=== PATIENT | female | born 1965 | race Caucasian/White ===

== ENCOUNTER → 2025-07-16 08:00 | Outpatient (BNV) | payer OTHER, SELFPAY | PROVIDERS: PCP Physician Assistant; Visit Provider Psychiatry & Neurology Neurology | DX: M54.16 Radiculopathy, lumbar region (principal); G62.89 Other specified polyneuropathies | CPT/HCPCS: 95886; 95910 ==

== ENCOUNTER 2025-07-16 08:13 | Outpatient (REF) | payer OTHER, SELFPAY ==
--- NOTE | 2025-07-16 08:00 | EMG_ITS ---
Chief complaint: Numbness and tingling Reason for referral: Numbness and tingling left leg Referred by:?Marbella Adair PA-C Procedure done: Left lower extremity NCS/EMG Left tibial and peroneal motor studies were performed left superficial peroneal and sural sensory studies were performed tibial H-reflex was obtained in EMG needle examination was performed. Superficial and sural amplitude was were significantly diminished with slow conduction velocities. Tibial and peroneal distal latencies were prolonged with significant reduction of amplitude send mild slowing of conduction velocity. Median and lateral mixed plantars studies revealed significant reduction of amplitude and slow conduction velocity. Impression: 1. Moderate axonal sensory motor peripheral neuropathy 2. Left lower lumbar radiculopathy MTDD
--- OUTSIDE RECORDS SUMMARY | 2025-07-16 09:34 | XMS_ITS | Clinical Summary ---
Author Organization [facility] Address [address] [place] [address] Phone Care Team Providers Care Rn Family Name Role Phone Marbella Adair Primary Care Provider [phone] Allergies Active Allergy Reactions Criticality Noted Date Comments Adhesive Tape-Silicones Rash High 12/05/2020 Epinephrine Palpitations High 04/18/2024 Morphine Hives,Itching High 01/20/2006 Medications estradioL (ESTRACE) 0.01 % (0.1 mg/gram) vaginal cream Insert 2 g into the vagina. 5 Active metFORMIN (GLUCOPHAGE) 500 mg tablet Take 1 tablet (500 mg total) by mouth. 3 Active atorvastatin (LIPITOR) 10 mg tablet Take 1 tablet (10 mg total) by mouth daily. 5 Active Mounjaro 5 mg/0.5 mL injection ADMINISTER 5 MG UNDER THE SKIN 1 TIME A WEEK Active multivitamin tablet Take 1 tablet by mouth daily. 5 Active naproxen (NAPROSYN) 500 mg tablet Take 1 tablet (500 mg total) by mouth. 5 Active freestyle 28 gauge lancets USE THREE TIMES DAILY WITH MEALS. 5 Active blood-glucose meter kit Test blood sugars TID w/meals and for symptoms of hypoglycemia 3 Active blood sugar diagnostic (FreeStyle Lite Strips) test strip 3 (three) times daily before meals Use daily.. 5 Active imiquimod (ALDARA) 5 % cream Apply topically 3 times a week for 2 months orf the right vulva. Wash hands prior to and following application. 24 each 1 5 Active clotrimazole-be tamethasone (LOTRISONE) 1-0.05 % cream Apply 2 times daily for 5-7 days as needed for itching 15 g 1 5 Active Active Problems Problem Noted Date Diagnosed Date Diverticulosis 06/19/2025 Severe obesity ([facility] V24, [facility] V28) 2024 Tricompartment osteoarthritis of right knee 12/29 H/O abdominal hysterectomy 01/03/2024 Type 2 diabetes mellitus wit h hyperglycemia, without long-term current use of insulin ([facility] V24, [facility] V28) 12/30/2022 Hepatosplenomegaly 11/05/2022 Overview (06/19/2025): 10/26/22 Abd US: IMPRESSION: Hepatosplenomegaly. Coarsened hepatic echo texture consistent with fatty infiltration and/or hepatocellular disease. A calcified cyst is present at the interpolar region of the right kidney measuring 1.1 x 1.0 x 1.3 cm; follow up renal US examination in approximately 6 months is recommended. Chronic diarrhea 12/05/2020 Hemorrhoids 12/05/2020 Mild intermittent asthma without complication Varicose veins of lower extremity 01/21/2010 Overview (06/19/2025): 2020 Microphlebectomy at [facility] Asthma 09/15/2006 Encounters Date Type Department Care Team Description 06/19/2025 3:45 PM EDT Office Visit Obstetrics [facility]ne[facility] [place] [address] [place] [address] Harmony Kwong CNM Acute vaginitis (Primary Dx); Genital warts from Last 3 Months Surgical History Surgery Date Site/Laterality Comments OTHER SURGICAL HISTORY 1994 PROCEDURE: [place] ANAL FSTL TRANS/SUPRA/XTRASPHNCTRC INCL [place] CHOLECYSTECTOMY 2001 PROCEDURE: HISTORICAL CHOLECYSTECTOMY; COMMENT: Scotty SECTION 1996 PROCEDURE: [place] DELIVERY ONLY HYSTERECTOMY Medical History Medical History Date Comments Unspecified asthma(493.90) DX:Un specified asthma(493.90) Obesity 06/06/2009 DX:Obesity Varicose vein 01/21/2010 DX:Varicose vein S/P colonoscopy 01/03/2018 DX:S/P colonosco py; COMMENT: Diverticulosis, internal hemorrhoids. Next due 2027 Internal hemorrhoids DX:Internal hemorrhoids; COMMENT: Grade 1 Diverticulosis DX:Diverticulosi s Abdominal discomfort DX:Abdomina l discomfort Diabetes mellitus type 2, co ntrolled, with complications (CMS/HCC V24, CMS/HCC V28) DX:Diabetes mellitus type 2, controlled, with complications ([facility]) Esophageal reflux DX:Esophageal reflux Family History Medical History Relation Name Comments Blindness Aunt maternal macular degener ation Diabetes Father lipids, HTN, [place] (age 59) Cataracts Maternal Grandmother No Known Problems Mother Ovarian cancer Mother's side MGGM Breast cancer Sister 50 Glaucoma Neg Hx strabismus, [place] breast Relation Name Status Comments Aunt maternal Father (Age 1990) [place] @ 59 Maternal Grandmother Mother Alive Mother's side MGGM Sister 50 Alive Social History Tobacco Use Types Packs/Day Years Used Date Smoking Tobacco: Never Smokeless Tobacco: Never Tobacco Cessation:Counseling Given: Not Answered Alcohol Use Standard Drinks/Week Comments No 0 (1 standard drink = 0.6 oz pur e alcohol) Comments No Sex and Gender Information Value Date Recorded Sex Assigned at Female 01/09/2025 4:39 PM EDT Legal Sex Female 9:58 AM EST Gender Identity Female 01/09/2025 4:39 PM EDT Sexual Orientation Choose not to disclose 2024 4:39 PM EDT Obstetrics History Para Term AB IAB SAB Ectopic Multiple Livin g Live Births 2 Last Filed Vital Signs Vital Sign Reading Time Taken Comments Blood Pressure 128/88 06/19/2025 4:16 PM EDT Pulse 76 06/19/2025 3:43 PM EDT Temperature - - Respiratory Rate 14 06/19/2025 3:43 PM EDT Oxygen Saturation - - Inhaled Oxygen Concentration - - Weight 122 kg (269 lb 3.2 oz) 06/19/2025 3:43 PM EDT Height 165.1 cm (5' 5 ) 01/26/2025 9:18 AM EDT Body Mass Index 44.8 01/26/2025 9:18 AM EDT Plan of Treatment Upcoming Encounters Date Type Department Care Team (Late st Contact Info) Description 07/24/2025 2:45 PM EDT Consult Orthopedic Surgery - [place] [address] [facility] [address] [place] [id number] Johnny Cary, DPM [address] [facility] [address] [place] [address] Health Maintenance Due Date Last Done Comments Diabetes: Annual Foot Exam 1975 Diabetes: Annual Retina Eye Exam 1975 Hepatitis A Vaccines (1 of 2 - Risk 2-dose series) 1984 Colorectal Cancer Screening: Colonoscopy 09/30/2022 Hepatitis C Screening 09/30/2022 Social Influencers of Health Screening 09/30/2022 Depression Screening 10/31/2024 RSV Immunization Adult Patients (1 - Risk 60-74 years 1-dose series) 2025 COVID-19 Vaccine ( season) 2025 11/17/2023, 10/15/2021, 01/09/2021, Additional history exists Influenza Vaccine (#1) 2025 , 08/01/2023, 08/03/2022, Additional history exists Diabetes: Blood Sugar Control Test (HGBA1C) 10/13/2025 04/13/2025, 12/08/2024 Cervical Cancer Screening: Pap Smear 03/29/2026 03/29/2023, 07/30/2021, 01/11/2018 Diabetes: Annual Urine Albumin-Creatinine Ratio (uACR) 05/30/2026 05/30/2025, 04/21/2024 Diabetes: Annual GFR (Glomerular Filtration Rate) 05/30/2026 05/30/2025, 04/21/2024 Breast Cancer Screening 01/26/2027 01/27/20 25, 11/14/2023, 10/14/2022, Additional history exists DTaP,Tdap,and Td Vaccines (3 - Td or Tdap) 11/12/2029 11/12/2019, 06/06/2009 Cholesterol Screening (Lipid Panel) 04/13/2030 04/13/2025, 04/13/2025, 01/07/2024, Additional history exists HIV Screening Completed 12/05/2020 Zoster Vaccines Completed 12/29/2022, 10/13/2022 Pneumococcal Vaccine: 50+ Years Completed 05/04/2024 Hepatitis B Vaccines Completed 06/04/2024, 05/04/20 24 HIB Vaccines Aged Out No longer eligi ble based on patient's age to complete this topic HPV Vaccines Aged Out No longer eligi ble based on patient's age to complete this topic IPV Vaccines Aged Out No longer eligi ble based on patient's age to complete this topic MMR Vaccines Aged Out No longer eligi ble based on patient's age to complete this topic Meningococcal ACWY Vaccine Aged Out N o longer eligible based on patient's age to complete this topic Meningococcal B Vaccine Aged Out No l onger eligible based on patient's age to complete this topic RSV Immunization Patients Under 20 months Aged Out No longer eligible based on patient's age to complete this topic Varicella Vaccines Aged Out No longer eligible based on patient's age to complete this topic Procedures Procedure Name Priority Date/Time Associated Diagnosis Comments TRICHOMONAS VAGINALIS ANTIGEN Routine 06/19/2025 4:10 PM EDT Acute vaginitis WET PREP, GENITAL Routine 06/19/2025 4:1 0 PM EDT Acute vaginitis MG MAMMO DIGITAL SCREENING W ALCON BILAT Routine 01/26/2025 9:30 AM EDT Encounter for screening mammogram for malignant neoplasm of breast PAP SMEAR Routine 03/29/2023 from Last 3 Months or Most Recently Relevant to Health Maintenance Results * Trichomonas vaginalis antigen (06/19/2025 4:10 PM EDT) Trichomonas vaginalis Negative Negative 06/19/2025 6:54 PM EDT [facility] Swab Vaginal structure / Unknown Non-blood Collection / Unknown 06/19/2025 4:10 PM EDT 06/19/2025 4:10 PM EDT [facility] MICROBIOLOGY - GENERAL OR DERABLES Final Result Performing Organization Address [facility]/ZIP Co de Phone Number [facility] [address] [place] [address], [place] [phone] * Wet prep, genital (06/19/2025 4:10 PM EDT) Clue Cells, Wet Prep Negative Negative 06/19/2025 6:43 PM EDT [facility] Yeast, Wet Prep Negative Negative 06/19/2025 6:43 PM EDT [facility] Trichomonas, Wet Prep Indeterminate Negative 06/19/2025 6:43 PM EDT [facility] Comment:Refer to Trichomonas antigen. Swab Vaginal structure / Unknown Non-blood Collection / Unknown 06/19/2025 4:10 PM EDT 06/19/2025 4:10 PM EDT [facility] MICROBIOLOGY - GENERAL OR DERABLES Final Result Performing Organization Address [facility] Co de Phone Number [facility] [address] [place] [address], [place] [phone] * MG Mammo Digital Screening w Alcon bilat (01/26/2025 9:30 AM EDT) Anatomical Region Laterality Modality Breast Bilateral Mammography 01/28/2025 7:18 AM EDT Impressions 01/28/2025 7:28 AM EDT No mammographic evidence of malignancy. No suspicious interval change. A negative mammogram in the presence of a clinically suspicious palpable abnormality does not preclude the possibility of malignancy or alter the indications for biopsy. ASSESSMENT: BI-RADS 1: NEGATIVE RECOMMENDATION(S): 1: Routine screening mammogram BILATERAL in 1 year. [facility] [address] [place], [address] -------- FINAL REPORT -------- Dictated By: Lane Jones Dictated Date: 01/28/2025 07:18 ET Assigned Physician: Lane Jones Reviewed and Electronically Signed By: Lane Jones Signed Date: 01/28/2025 07:28 ET Workstation ID: [id number] Transcribed By: Self Edit Transcribed Date: 01/28/2025 07:18 ET Narrative 01/28/2025 7:28 AM EDT EXAM: SCREENING MAMMOGRAPHY, BILATERAL HISTORY: SCREENING. Family history of breast cancer, sister. COMPARISON: 11/12/23, 10/13/22, 08/22/21, 07/28/20 TECHNIQUE: Synthesized CC and MLO projections of each breast. Tomosynthesis of each breast in the CC and MLO projections. ADDITIONAL IMAGING: None Computer-aided detection was employed with the Noxilizer AI 3-D. TISSUE DENSITY: There are scattered areas of fibroglandular density. (BI-RADS category B) FINDINGS: RIGHT BREAST: No suspicious mass. No suspicious calcification. No distortion. No additional suspicious right breast findings LEFT BREAST: No suspicious mass. No suspicious calcification. No distortion. No additional suspicious left breast findings Procedure Note Lane Jones, MD - 01/28/2025 EXAM: SCREENING MAMMOGRAPHY, BILATERAL HISTORY: SCREENING. Family history of breast cancer, sister. COMPARISON: 11/12/23, 10/13/22, 08/22/21, 07/28/20 TECHNIQUE: Synthesized CC and MLO projections of each breast.Tomosynthesis of each breast in the CC and MLO projections. ADDITIONAL IMAGING: None Computer-aided detection was employed with the Noxilizer AI 3-D. TISSUE DENSITY: There are scattered areas of fibroglandular density.(BI-RADS category B) FINDINGS: RIGHT BREAST: No suspicious mass. No suspicious calcification. No distortion. Noadditional suspicious right breast findings LEFT BREAST: No suspicious mass. No suspicious calcification. No distortion. Noadditional suspicious left breast findings IMPRESSION: No mammographic evidence of malignancy. No suspicious interval change. A negative mammogram in the presence of a clinically suspicious palpableabnormality does not preclude the possibility of malignancy or alter theindications for biopsy. ASSESSMENT: BI-RADS 1: NEGATIVE RECOMMENDATION(S): 1: Routine screening mammogram BILATERAL in 1 year. [facility] [address], [address] -------- FINAL REPORT -------- Dictated By: Lane Jones Dictated Date: 01/28/2025 07:18 ET Assigned Physician: Lane Jones Reviewed and Electronically Signed By: Lane Jones Signed Date: 01/28/2025 07:28 ET Workstation ID: [id number] Transcribed By: Self Edit Transcribed Date: 01/28/2025 07:18 ET Marbella GALAN IMBeatriz BI PROCEDURES Final Result * Pap smear (03/29/2023) 03/29/2023 Narrative HISTORICAL TESTING LAB RESULTING AGENCY - 04/06/2023 1:56 PM EDT [id number] THINPREP PAP, IMAGED: NEGATIVE FOR SQUAMOUS INTRAEPITHELIAL LESION AND MALIGNANCY . FRANKIE LEMA(ASCP) (CASE ELECTRONICALLY SIGNED 04 06 2023) RESULT OF APTIMA HIGH RISK HPV ASSAY: HIGH RISK HPV: NEGATIVE (SEROTYPES 16,18,31,33,35,39,45,51,52,56,58,59,66,68) COMPLETED ON 2023-03-31 ADEQUACY: SATISFACTORY ENDOCERVICAL/TRANSFORMATION ZONE COMPONENT PRESENT. SOURCE: THINPREP PAP HPV ANY DX: REFLEX 16 AND 18, CERVICAL, IMAGED CLINICAL INFORMATION: HPV ANY DIAGNOSIS. MENOPAUSE, Z12.4 us Fabiola Castro DO LAB CYTOLOGY ORDERABLES Final Result HISTORICAL TESTING LAB RESULTING AGENCY from Last 3 Months or Most Recently Relevant to Health Maintenance [place] [address] [address] Care Teams Rn Family Relationship Specialty Start Date End Date Marbella Adair PA [address] [place] [address] PCP - General 11/09/22
--- OUTSIDE RECORDS SUMMARY | 2025-07-16 09:34 | XMS_ITS | Clinical Summary ---
Author Organization [facility] Address [address] [address] Care Team Providers Care Refrigeration System Installer Name Role Phone Marbella Adair PA-C Primary Care Provider [phone] Source Comments PLEASE NOTE, if this patient is a minor, it may be UNLAWFUL to discuss sensitive information that is contained in these records (such as FAMILY PLANNING, MENTAL HEALTH or SUBSTANCE ABUSE) with the minor patient's parent or other person without the patient's specific authorization.[facility] Allergies Active Allergy Reactions Criticality Noted Date Comments Adhesive Tapes Rash High 12/05/2020 Epinephrine Palpitations High 04/18/2024 Morphine Hives High 12/05/2020 Medications blood-glucose meter (FREESTYLE LITE METER) monitoring kitIndications:T ype 2 diabetes mellitus with hyperglycemia, without long-term current use of insulin (CMS & HHS-HCC) Test blood sugars TID w/meals and for symptoms of hypoglycemia 1 Each 11/30/19 23 Active oxyCODONE (ROXICODONE) 5 mg tabletIndication s:Acute pain of right knee Take 1 Tablet by mouth every 6 (six) hours as needed for pain 4 Tablet 02/19/20 25 Active tirzepatide (MOUNJARO) 2.5 mg/0.5 mL pnijIndications: Type 2 diabetes mellitus with hyperglycemia, without long-term current use of insulin ([facility]) Inject 2.5 mg into the skin once a week. 2 mL 04/12/20 25 Active blood sugar diagnostic (FREESTYLE LITE STRIPS) stripsIndication s:Type 2 diabetes mellitus with hyperglycemia, without long-term current use of insulin ([facility]) 3 (three) times daily before meals Use daily.. 100 Each 04/15/20 25 Active lancets (FREESTYLE LANCETS) 28 gaugeIndications :Type 2 diabetes mellitus with hyperglycemia, without long-term current use of insulin ([facility]) USE THREE TIMES DAILY WITH MEALS. 100 Each 04/15/20 25 Active MISCELLANEOUS MEDICAL SUPPLY MISCIndications: Type 2 diabetes mellitus with hyperglycemia, without long-term current use of insulin ([facility]) by miscellaneous route daily DX: diabetes, RHIANNON: 99, Supply: diabetic shoes and insoles.. 1 Each 05/01/20 25 Active estradioL (ESTRACE) 0.01 % (0.1 mg/gram) vaginal creamIndications :Vaginal atrophy Place 2 g vaginally nightly at bedtime. 42.5 g 3 05/02/20 25 Active atorvastatin (LIPITOR) 10 mg tabletIndication s:Type 2 diabetes mellitus with hyperglycemia, without long-term current use of insulin ([facility]) TAKE 1 TABLET BY MOUTH DAILY 90 Tablet 1 05/10/20 25 Active multivitamin tabletIndication s:Encounter for annual physical exam Take 1 Tablet by mouth once daily. 90 Tablet 1 05/30/20 25 Active albuterol HFA 90 mcg/actuation inhalerIndicatio ns:Mild intermittent asthma without complication ([facility]) Inhale 2 Puffs into the lungs every 4 to 6 (four to six) hours as needed for shortness of breath or wheezing. 1 Each 3 05/30/20 25 Active metFORMIN (GLUCOPHAGE) 500 mg tabletIndication s:Type 2 diabetes mellitus without complication, without long-term current use of insulin ([facility]) Take 1 Tablet by mouth 2 (two) times daily with a meal. 180 Tablet 1 05/30/20 25 Active naproxen (NAPROSYN) 500 mg tabletIndication s:Acute pain of right knee Take 1 Tablet by mouth 2 (two) times daily with a meal. 60 Tablet 05/30/20 25 Active tirzepatide (MOUNJARO) 5 mg/0.5 mL pnijIndications: Type 2 diabetes mellitus with hyperglycemia, without long-term current use of insulin ([facility]) Inject 5 mg into the skin once a week. 2 mL 2 06/26/20 25 Active diclofenac sodium (VOLTAREN) 1 % gelIndications:A cute pain of right knee Apply 2-4 g topically 2 (two) times daily 100 g 01/09/20 25 025 Discontin ued(Thera py completed /Not needed) tirzepatide (MOUNJARO) 5 mg/0.5 mL pnijIndications: Type 2 diabetes mellitus with hyperglycemia, without long-term current use of insulin ([facility]) Inject 5 mg into the skin once a week. 2 mL 2 04/12/20 25 025 Discontin ued(Reord er (E-Cancel Not Sent)) Active Problems Problem Noted Date Diagnosed Date Tricompartment osteoarthritis of right knee 12/29 Class 3 severe obesity due t o excess calories without serious comorbidity with body mass index (BMI) of 45.0 to 49.9 in adult ([facility]) 06/04/2024 History of endometrial cancer 01/03/2024 H/O abdominal hysterectomy 01/03/2024 Type 2 diabetes mellitus wit h hyperglycemia, without long-term current use of insulin ([facility]) 12/30/2022 Hepatosplenomegaly 11/05/2022 Overview (11/05/2022): 10/26/22 Abd US: IMPRESSION: Hepatosplenomegaly. Coarsened hepatic echo texture consistent with fatty infiltration and/or hepatocellular disease. A calcified cyst is present at the interpolar region of the right kidney measuring 1.1 x 1.0 x 1.3 cm; follow up renal US examination in approximately 6 months is recommended. Varicose veins of lower extremity 12/05/2020 Overview (10/13/2022): 2020 Microphlebectomy at [facility] Chronic diarrhea 12/05/2020 Mild intermittent asthma without complication (H HS-HCC) 12/05/2020 Class 2 obesity due to exces s calories without serious comorbidity with body mass index (BMI) of 39.0 to 39.9 in adult 12/05/2020 Hemorrhoids 12/05/2020 Encounters Date Type Department Care Team Description 05/30/2025 2:20 PM EDT Office Visit [address] [phone] Marbella Adair PA-C 05/07/2025 Results Follow-Up [address] [phone] Luis Childs PharmD 05/07/2025 Interim Notes [address] [phone] Naveed Pena MA 05/02/2025 10:40 AM EDT Office Visit [address] [phone] Adeola Cheung RN 05/01/2025 Interim Notes [address] [phone] Marbella Adair PA-C 04/29/2025 3:00 PM EDT Telemedicine Visit [address] [phone] Marbella Adair PA-C 04/29/2025 1:40 PM EDT Office Visit [address] [phone] Kandace Morris RN 04/18/2025 Interim Notes [address] [phone] Verona Roche MA from Last 3 Months Immunizations Immunization Administration Dates Next Due Flu, Cell Culture based, Pre servative Free, 6m+, Flucelvax 07/17/2020,09/12/2019 Flu, Preservative Free 08/03/2022 Hep B,adult,adjuvanted (HEPLISAV) 06/04/2024,02/2024 INFLUENZA, SEASONAL, INJECTABLE 08/01/2023 PNEUMOCOCCAL CONJUGATE PCV 20 (Prevnar 20) 05/04 TDAP 06/06/2009 Td (adult),2 Lf tetanus toxo id (TDVAX), preservative free 11/12/2019 ZOSTER VACCINE, RECOMBINANT (SHINGRIX) 3,10/13/2022 Family History Medical History Relation Name Comments Diabetes Father High Cholesterol Father Hypertension Father Cancer Maternal Aunt Endometrial Cancer Mother Breast cancer Sister Cancer Sister Relation Name Status Comments Father Maternal Aunt Other Ovarian Cancer Mother Alive Endometrial can cer stage 3C Sister Other breast Cancer Social History Tobacco Use Types Packs/Day Years Used Date Smoking Tobacco: Never Smokeless Tobacco: Never Tobacco Cessation:Counseling Given: Not Answered Alcohol Use Standard Drinks/Week Comments Never 0 (1 standard drink = 0.6 oz pur e alcohol) Social Connections Answer Date Recorded Connectedness 0 07/14/2024 Financial Resource Strain Answer Date R ecorded Financial Resource Strain 0 2020 Stress Answer Date Recorded Stress 0 12/05/2020 Physical Activity Answer Date Recorded Physical Activity 0 12/05/2020 Food Insecurity Answer Date Recorded Food 0 07/26/2024 Transportation Needs Answer Date Record ed Transportation 0 12/05/2020 Housing Stability Answer Date Recorded Housing 0 12/05/2020 Safety and Environment Answer Date Sai rded Safety 0 12/05/2020 Utilities Answer Date Recorded Utilities 0 12/05/2020 Employment Answer Date Recorded Stress 0 07/14/2024 Comments No Sex and Gender Information Value Date Recorded Sex Assigned at Female 12/05/2020 10:09 AM PST Legal Sex Female 5:55 AM PST Gender Identity Female 12/05/2020 10:09 AM PST Sexual Orientation Straight 12/05/2020 10 :09 AM PST Last Filed Vital Signs Vital Sign Reading Time Taken Comments Blood Pressure 132/78 05/30/2025 2:34 PM EDT Pulse 88 05/30/2025 2:34 PM EDT Temperature 36.8 C (98.2 F) 05/30/2025 2:34 PM EDT Respiratory Rate 16 05/30/2025 2:34 PM EDT Oxygen Saturation 99% 05/30/2025 2:34 PM EDT Inhaled Oxygen Concentration - - Weight 124.7 kg (275 lb) 05/30/2025 2:34 PM EDT Height 160 cm (5' 3 ) 05/30/2025 2:34 PM EDT Body Mass Index 48.71 05/30/2025 2:34 PM EDT Plan of Treatment Health Maintenance Due Date Last Done Comments Anxiety Screening 1965 HPV Screening 1965 Pap + HPV [address] Colonography 2010 FIT/gFOBT 2010 Fecal DNA 2010 Flexible Sigmoidoscopy 2010 Pap Smear 05/02/2021 05/02/2018 (Melissa dimas by Outside Provider) Dental BW 05/14/2024 05/12/2023 Dental Examination 05/14/2024 05/12/2023 Dental Perio Charting 05/14/2024 05/12/2023 Dental Prophy 06/11/2025 12/10/2024 [id number] ( season) 2025 11/17/2023, 10/15/2021, 01/09/2021, Additional history exists Imm-Influenza (#1) 2025 08/08/2024, 1 , 08/03/2022, Additional history exists Hemoglobin A1c 07/14/2025 04/13/2025, 02/0 05/2025, 08/04/2024, Additional history exists Lipid Screening 04/13/2026 04/13/2025, 03/0 07/2024, 2022, Additional history exists Diabetes Foot Exam 04/29/2026 04/29/2025, 1 12/18/2023, 04/18/2024, Additional history exists Annual Wellness (Adult): Indicated (All Coverage) 05/30/2026 05/30/2025, 05/30/2025, 04/18/2024, Additional history exists Hypertension Screening (#1) 05/30/2026 Serum Creatinine 05/30/2026 05/30/2025, , 01/07/2024, Additional history exists Tobacco Screening 05/30/2026 05/30/2025 Urine Albumin Creatinine Rat io Screening 05/30/2026 05/30/2025, 04/21/2024 Breast Cancer Screening (Mammogram) 01/26/2027 01/26/2025, 01/26/2025, 11/30/2023, Additional history exists Colonoscopy 01/04/2028 01/03/2018 (Melissa dimas by Outside Provider) Colorectal Cancer Screening 01/04/2028 Dental FMX/Pano 05/14/2028 05/12/2023 Imm-DTaP/Tdap/Td (3 - Td or Tdap) 11/12/2029 020, 06/06/2009 HIV Screening Completed 12/05/2020 Hepatitis C Screening Completed 12/05/2020 Imm-Zoster, Recombinant Completed 12/29/2022, 10/13 Imm-Pneumococcal 50+ Completed 05/04/2024 Imm-Hepatitis B Completed 06/04/2024, 05/04/2024 Alcohol and Drug Screen Completed 12/10/19 25, 01/03/2024, 03/03/2023, Additional history exists Depression Annual Screen Completed 12/10/2024 Cervical Ablation/Cold-Knife Conization Discontinued Cervical Cancer Screening Discontinued Cervical Cryotherapy Discontinued Colposcopy Discontinued Endometrial Biopsy Discontinued Excision/Leep Discontinued HPV Genotyping Discontinued Vaginal Pap Discontinued Vulvoscopy Discontinued Procedures Procedure Name Priority Date/Time Associated Diagnosis Comments REFERRAL TO VASCULAR SURGERY Routine 06/21/2025 3:00 AM EDT Varicose veins of lower extremity, unspecified laterality, unspecified whether complicated VITAMIN B12 & FOLATE Routine 05/30/2025 3:41 PM EDT Numbness and tingling of left leg BLOOD COUNT COMPLETE AUTO&AUTO DIFRNTL WBC Routine 05/30/2025 3:41 PM EDT Encounter for annual physical exam ASSAY OF MAGNESIUM Routine 05/30/2025 3: 41 PM EDT Encounter for annual physical exam BASIC METABOLIC PANEL CALCIUM TOTAL Routine 05/30/2025 3:41 PM EDT Encounter for annual physical exam HEPATIC FUNCTION PANEL Routine 05/30/2025 3:41 PM EDT Non-alcoholic fatty liver disease MICROALBUMIN/CREATINI NE RATIO, URINE, RANDOM Routine 05/30/2025 3:41 PM EDT Type 2 diabetes mellitus without complication, without long-term current use of insulin ([facility]) OTHER ORDERS SCANNED DOCUMENT 05/07/2025 3:00 AM EDT LIPID PANEL Routine 04/13/2025 11:37 AM EDT Type 2 diabetes mellitus with hyperglycemia, without long-term current use of insulin ([facility]) HGBA1C W/MPG Routine 04/13/2025 11:37 AM EDT Type 2 diabetes mellitus with hyperglycemia, without long-term current use of insulin ([facility]) REFERRAL FOR MAMMOGRAM Routine 01/26/2025 3:00 AM EDT Breast cancer screening by mammogram Full INTRAORAL - COMP SERIES OF RADIOGRAPHIC IMAGES Routine 05/12/2023 4:20 PM EDT Encounter for dental examination and cleaning with abnormal findings Full COMP ORAL EVALUATION - NEW/ESTABLISHED PATIENT Routine 05/12/2023 4:20 PM EDT Encounter for dental examination and cleaning with abnormal findings REFERRAL TO PODIATRY Routine 07/01/2022 3:00 AM EDT Ingrown right big toenail ANTIBODY HIV-1&HIV-2 SINGLE RESULT Routine 12/05/2020 1:25 PM EST Encounter for general adult medical examination w/o abnormal findings HEPATITIS A,B,C PANEL Routine 12/05/2020 1:25 PM EST Encounter for general adult medical examination w/o abnormal findings from Last 3 Months or Most Recently Relevant to Health Maintenance Results * REFERRAL TO VASCULAR SURGERY (06/21/2025 3:00 AM EDT) 06/21/2025 3:00 AM EDT us Marbella Adair PA-C REFERRAL Final Result * MICROALBUMIN/CREATININE RATIO, URINE, RANDOM Urine Routine (05/30/2025 3:41 PM EDT) CREATININE, RANDOM URINE 69 20 - 275 mg/dL 05/31/2025 4:30 PM EDT [facility] MICROALBUMIN 0.4 mg/dL 05/31/2025 4:30 PM EDT [facility] MICROALBUMIN/CRE ATININE RATIO, RANDOM URINE 6 <30 mg/g creat 05/31/2025 4:30 PM EDT [facility] Urine Urine specimen / Unknown 05/30/2025 3:41 PM EDT 05/31/2025 6:51 AM EDT [facility] - 05/31/2025 4:35 PM EDT FASTING:NO Reference Range Not established . The ADA defines abnormalities in albumin excretion as follows: . Albuminuria Category Result (mg/g creatinine) . Normal to Mildly increased <30 Moderately increased 30-299 Severely increased > OR = 300 . The ADA recommends that at least two of three specimens collected within a 3-6 month period be abnormal before considering a patient to be within a diagnostic category. Marbella Adair PA-C LAB URINE AMBULATORY Final R esult [facility] [address] [place] [id number], [facility] [address] [address] * VITAMIN B12 & FOLATE Routine (05/30/2025 3:41 PM EDT) VITAMIN B12 286 200 - 1,100 pg/mL 05/31/2025 6:16 AM EDT [facility] FOLATE, SERUM 14.0 ng/mL 05/31/2025 6:16 AM EDT [facility] Blood Blood / Unknown 05/30/2025 3 :41 PM EDT 05/31/2025 4:38 AM EDT [facility] - 05/31/2025 6:24 AM EDT FASTING:NO . Please Note: Although the reference range for vitamin B12 is 200-1100 pg/mL, it has been reported that between 5 and 10% of patients with values between 200 and 400 pg/mL may experience neuropsychiatric and hematologic abnormalities due to occult B12 deficiency; less than 1% of patients with values above 400 pg/mL will have symptoms. . Reference Range Low: <3.4 Borderline: 3.4-5.4 Normal: >5.4 . us Marbella Adair PA-C LAB - BLOOD DRAW Final Resul t [facility] [address] [address], [facility] [address] [place] [address] * (ABNORMAL) BLOOD COUNT COMPLETE AUTO&AUTO DIFRNTL WBC Routine (05/30/2025 3:41 PM EDT) Pathologist [facility] WHITE BLOOD CELL COUNT 11.2(H) 3.8 - 10.8 Thousand/ uL 05/31/2025 4:18 AM EDT [facility] RED BLOOD CELL COUNT 4.57 3.80 - 5.10 Million/u L 05/31/2025 4:18 AM [facility]CSID [facility] HEMOGLOBIN 13.1 11.7 - 15.5 g/dL 05/31/2025 4:18 AM [facility]CSID [facility] HEMATOCRIT 40.8 35.0 - 45.0 % 05/31/2025 4:18 AM [facility]CSID [facility] MCV 89.3 80.0 - 100.0 fL 05/31/2025 4:18 AM [facility]CSID [facility] MCH 28.7 27.0 - 33.0 pg 05/31/2025 4:18 AM EDCSID [facility] MCHC 32.1 32.0 - 36.0 g/dL 05/31/2025 4:18 AM [facility]CSID [facility] RDW 13.1 11.0 - 15.0 % 05/31/2025 4:18 AM [facility] PLATELET COUNT 247 140 - 400 Thousand/ uL 05/31/2025 4:18 AM [facility] MPV 10.8 7.5 - 12.5 fL 05/31/2025 4:18 AM [facility]CSID [facility] ABSOLUTE NEUTROPHILS 8,064(H) 1,500 - 7,800 cells/uL 05/31/2025 4:18 AM [facility]CSID [facility] ABSOLUTE LYMPHOCYTES 2,162 850 - 3,900 cells/uL 05/31/2025 4:18 AM [facility] ABSOLUTE MONOCYTES 694 200 - 950 cells/uL 05/31/2025 4:18 AM EDT [facility] ABSOLUTE EOSINOPHILS 213 15 - 500 cells/uL 05/31/2025 4:18 AM EDT [facility] ABSOLUTE BASOPHILS 67 0 - 200 cells/uL 05/31/2025 4:18 AM EDT [facility] NEUTROPHILS PCT 72 % 4:18 AM EDT [facility] LYMPHOCYTES 19.3 % 05/31/2025 4:18 AM EDT [facility] MONOCYTES 6.2 % 05/31/2025 4:18 AM EDT [facility] EOSINOPHILS 1.9 % 05/31/2025 4:18 AM EDT [facility] BASOPHILS 0.6 % 05/31/2025 4:18 AM EDT [facility] Blood Blood / Unknown 05/30/2025 3 :41 PM EDT 05/31/2025 3:46 AM EDT [facility] - 05/31/2025 4:40 AM EDT FASTING:NO For adults, a slight decrease in the calculated MCHC value (in the range of 30 to 32 g/dL) is most likely not clinically significant; however, it should be interpreted with caution in correlation with other red cell parameters and the patient's clinical condition. us Marbella Adair PA-C LAB - BLOOD DRAW Final Resul t [facility] [address] [address], [facility] [address] [address] * ASSAY OF MAGNESIUM Routine (05/30/2025 3:41 PM EDT) MAGNESIUM 2.0 1.5 - 2.5 mg/dL 05/31/2025 7:40 AM EDT [facility] Blood Blood / Unknown 05/30/2025 3 :41 PM EDT 05/31/2025 4:38 AM EDT [facility] - 05/31/2025 7:57 AM EDT FASTING:NO Marbella Adair PA-C LAB - BLOOD DRAW Final Resul t Performing Organization Address City/[facility]/ZIP Co de Phone Number [facility] [address] [address], [facility] [address] [place] [address] * HEPATIC FUNCTION PANEL Routine (05/30/2025 3:41 PM EDT) PROTEIN, TOTAL 7.1 6.1 - 8.1 g/dL 05/31/2025 7:40 AM EDT [facility] ALBUMIN 4.4 3.6 - 5.1 g/dL 05/31/2025 7:40 AM EDT [facility] GLOBULIN 2.7 1.9 - 3.7 g/dL (calc) 05/31/2025 7:40 AM EDT [facility] ALBUMIN/GLOBULIN RATIO 1.6 1.0 - 2.5 (calc) 05/31/2025 7:40 AM EDT [facility] BILIRUBIN, TOTAL 0.3 0.2 - 1.2 mg/dL 05/31/2025 7:40 AM EDT [facility] BILIRUBIN, DIRECT 0.1 0.0 - 0.2 mg/dL 05/31/2025 7:40 AM EDT [facility] BILIRUBIN, INDIRECT 0.2 0.2 - 1.2 mg/dL (calc) 05/31/2025 7:40 AM EDT [facility] ALKALINE PHOSPHATASE 85 37 - 153 U/L 05/31/2025 7:40 AM EDT [facility] AST 18 10 - 35 U/L 05/31/2025 7:40 AM EDT [facility] ALT 19 6 - 29 U/L 05/31/2025 7:40 AM EDT [facility] Blood Blood / Unknown 05/30/2025 3 :41 PM EDT 05/31/2025 4:38 AM EDT [facility] - 05/31/2025 7:57 AM EDT FASTING:NO us Marbella Adair PA-C LAB - BLOOD DRAW Final Resul t [facility] [address] [address], [facility] [address] [place] [address] * BASIC METABOLIC PANEL CALCIUM TOTAL Routine (05/30/2025 3:41 PM EDT) GLUCOSE 121 65 - 139 mg/dL 05/31/2025 7:40 AM EDT [facility] UREA NITROGEN (BUN) 22 7 - 25 mg/dL 05/31/2025 7:40 AM EDT [facility] CREATININE (blood) 0.63 0.50 - 1.05 mg/dL 05/31/2025 7:40 AM EDT [facility] EGFR 101 > OR = 60 mL/min/1. 73m2 05/31/2025 7:40 AM EDT [facility] BUN/CREATININE RATIO SEE NOTE: 6 - 22 (calc) 05/31/2025 7:40 AM EDT [facility] SODIUM 139 135 - 146 mmol/L 05/31/2025 7:40 AM EDT [facility] POTASSIUM 4.3 3.5 - 5.3 mmol/L 05/31/2025 7:40 AM EDT [facility] CHLORIDE 102 98 - 110 mmol/L 05/31/2025 7:40 AM EDT [facility] CARBON DIOXIDE 29 20 - 32 mmol/L 05/31/2025 7:40 AM EDT [facility] CALCIUM 9.4 8.6 - 10.4 mg/dL 05/31/2025 7:40 AM EDT [facility] Blood Blood / Unknown 05/30/2025 3 :41 PM EDT 05/31/2025 4:38 AM EDT Narrative [facility] - 05/31/2025 7:57 AM EDT FASTING:NO . Non-fasting reference interval . Not Reported: BUN and Creatinine are within reference range. . us Marbella Adair PA-C LAB - BLOOD DRAW Final Resul t [facility] [address] [address], [facility] [address] [place] [address] * OTHER ORDERS SCANNED DOCUMENT (05/07/2025 3:00 AM EDT) 05/07/2025 3:00 AM EDT Marbella Adair PA-C SCAN OTHER ORDERS Final Resu lt * (ABNORMAL) HGBA1C W/MPG Routine (04/13/2025 11:37 AM EDT) HEMOGLOBIN A1C 9.0(H) <5.7 % [facility] Comment: For someone without known diabetes, a hemoglobin A1c value of 6.5% or greater indicates that they may have diabetes and this should be confirmed with a follow-up test. For someone with known diabetes, a value <7% indicates that their diabetes is well controlled and a value greater than or equal to 7% indicates suboptimal control. A1c targets should be individualized based on duration of diabetes, age, comorbid conditions, and other considerations. Currently, no consensus exists regarding use of hemoglobin A1c for diagnosis of diabetes for children. MEAN PLASMA GLUCOSE 243 mg/dL (calc) [facility] Blood Blood / Unknown 04/13/2025 1 1:37 AM EDT 04/13/2025 11:39 AM EDT Narrative [facility] - 04/14/2025 7:30 AM EDT FASTING:YES Luis Baumann PharmD LAB - BLOOD D RAW Edited Result - Final [facility] [address] [address], [facility] [address] [place] [phone] * (ABNORMAL) LIPID PANEL Routine (04/13/2025 11:37 AM EDT) CHOLESTEROL, TOTAL 148 <200 mg/dL [facility] HDL CHOLESTEROL 33(L) > OR = 50 mg/dL [facility] TRIGLYCERIDES 235(H) <150 mg/dL [facility] Comment: If a non-fasting specimen was collected, consider repeat triglyceride testing on a fasting specimen if clinically indicated. Krishan et al. J. of Clin. Lipidol. 2015;9:129-169. LDL-CHOLESTEROL 82 99 mg/dL (calc) [facility] Comment: Reference range: <100 Desirable range <100 mg/dL for primary prevention; <70 mg/dL for patients with CHD or diabetic patients with > or = 2 CHD risk factors. LDL-C is now calculated using the Mariluz calculation, which is a validated novel method providing better accuracy than the Friedewald equation in the estimation of LDL-C. Mio SS et al. CAROLYN. 2013;310(19): 3004-5953 (http://education.EXFO/faq/VTY073) CHOL/HDLC RATIO 4.5 <5.0 (calc) [facility] NON-HDL CHOLESTEROL 115 <130 mg/dL (calc) [facility] Comment: For patients with diabetes plus 1 major ASCVD risk factor, treating to a non-HDL-C goal of <100 mg/dL (LDL-C of <70 mg/dL) is considered a therapeutic option. Blood Blood / Unknown 04/13/2025 1 1:37 AM EDT 04/13/2025 11:39 AM EDT Narrative [facility] - 04/14/2025 7:30 AM EDT FASTING:YES Luis Baumann PharmD LAB - BLOOD D RAW Final Result [facility] [address] [place] [id number], [employer] [address] [place] [id number] * REFERRAL FOR MAMMOGRAM SCREENING (01/26/2025 3:00 AM EDT) 01/26/2025 3:00 AM EDT Marbella Adair PA-C IMG RFL MAMMO Final Result * REFERRAL TO PODIATRY (07/01/2022 3:00 AM EDT) 07/01/2022 3:00 AM EDT Gely Hayes AX SURVEY WORKER-BC REFERRAL Edited Re sult - Final * HEPATITIS A,B,C PANEL (12/05/2020 1:25 PM EST) HEPATITIS B SURFACE ANTIBODY NEGATIVE NEGATIVE [facility] HEPATITIS B SURFACE ANTIGEN NEGATIVE NEGATIVE [facility] Comment: Over the counter supplements containing high doses of biotin may interfere with this assay. If interference is suspected, patients shoud be retested after refraining from biotin supplements for 72 hours. HEPATITIS C VIRUS DIAGNOSTIC NEGATIVE NEGATIVE [facility] HEPATITIS A ANTIBODY TOTAL NEGATIVE NEGATIVE [facility] Comment: Over the counter supplements containing high doses of biotin may interfere with this assay. If interference is suspected, patients shoud be retested after refraining from biotin supplements for 72 hours. HEPATITIS B CORE ANTIBODY NEGATIVE NEGATIVE [facility] 12/05/2020 1:25 PM EST 12/05/2020 1:27 PM EST Narrative [facility] - 12/05/2020 6:34 PM EST [facility] [employer], [place] [address] Roll Examiner - Alyx Torres MD PT ID [id number] ORD# [id number] [facility] - BLOOD DRAW Edited [place] [address], * HIV-1 & HIV-2 ANTIBODIES (12/05/2020 1:25 PM EST) HIV 1 AND 2 ANTIBODY SCREEN NEGATIVE NEGATIVE [facility] Comment: This assay is a 4th generation assay allowing for earlier detection of HIV infection by detecting the presence of the HIV-1 p24 antigen as well as the traditional antibodies to HIV type 1 (including group O) and type 2. Use of a 4th generation assay is the current CDC recommendation for HIV screening. Blood Blood / Unknown 12/05/2020 1 :25 PM EST 12/05/2020 1:27 PM EST Narrative [facility] - 12/05/2020 7:02 PM EST [facility] [employer], a member of [address] [address] Roll Examiner - Alyx Torres MD PT ID [id number] ORD# [id number] [facility] - BLOOD DRAW Final Resu lt [facility] [address] [place] [address], from Last 3 Months or Most Recently Relevant to Health Maintenance Insurance [employer] ([facility]) Member Subscriber Plan / Payer ( fective 2021-Present) Name:Donna Cook Relation to Subscriber:Self Name:Donna Cook Payer ID:[id number] Type:Indemnity Address: [address] [place] [address] DENTAL Care Teams Refrigeration System Installer Relationship Specialty Start Date End Date Marbella Adair PA-C [address] [place] [address] PCP - General 04/09/22
== END 2025-07-16 08:14 | disposition home or self-care (01) ==
LOC: HO.NEURO 08:13
PROVIDERS: PCP Physician Assistant; Visit Provider Physician Assistant
DX: R20.0 Anesthesia of skin (principal); R20.2 Paresthesia of skin; G62.9 Polyneuropathy, unspecified
CPT/HCPCS: 95886; 95910